=== PATIENT | female | born 1975 | race Caucasian/White ===

== ENCOUNTER 2020-10-26 15:45 | Emergency (ER) | payer OTHER ==
[~2020-10-26] VITALS: Ht 157.5 cm; Wt 54.4 kg
[~2020-10-26 15:45] MED LIST: CITA20 PO; Cheratussin AC118 ML PO; LEVSOD50 PO; ORACONB PO
[2020-10-26] MEDS ORDERED: LIDO700A20 TOP (17:15)
[2020-10-26] MEDS ORDERED: IBUP400 PO (17:15)
== END 2020-10-26 17:40 | disposition home or self-care (01) ==
LOC: ER 15:45
DX: S39.012A Strain of muscle, fascia and tendon of lower back, initial encounter (principal); S29.012A Strain of muscle and tendon of back wall of thorax, initial encounter; Z79.899 Other long term (current) drug therapy; V43.62XA Car passenger injured in collision with other type car in traffic accident, initial encounter
CPT/HCPCS: 72131; 72192; 99284-25; A9270